=== PATIENT | female | born 1990 | race Caucasian/White ===

== ENCOUNTER 2022-04-26 14:54 | Outpatient (REF) | payer BC, SELFPAY ==
[2022-04-26 15:57] LABS: HCT 40.5 % (36.0-46.0); HGB 13.2 g/dL (11.2-15.7); MCH 29.6 pg (27.0-33.0); MCHC 32.6 % (32.0-36.0); MCV 91 fL (80-95); MPV 11.4 fL (8.0-11.0); Platelet Count 260 10^3/uL (130-400); RBC 4.46 10^6/uL (3.93-5.22); RDW 13.4 % (11.7-14.6); RDW-SD 45.1 fL; WBC 8.32 10^3/uL (4.4-10.8)
[2022-04-26 16:27] LABS: Hemoglobin A1C 5.8 % (<5.7)
[2022-04-26 16:42] LABS: Calculated LDL 152 mg/dL (<100); Cholesterol 244 mg/dL (<200); Ferritin 93 ng/mL (8-252); HDL Cholesterol 50 mg/dL (40-60); TSH (W/Ref FT4) 34.17 uIU/mL (0.36-3.74); Triglyceride 214 mg/dL (<150)
[2022-04-26 17:03] LABS: FREE T4 0.45 ng/dL (0.76-1.46)
== END 2022-04-26 14:55 | disposition home or self-care (01) ==
LOC: NCHCN 14:54
PROVIDERS: Visit Provider Nurse Practitioner Family
DX: I10 Essential (primary) hypertension (principal); R00.2 Palpitations; Z86.2 Personal history of diseases of the blood and blood-forming organs and certain disorders involving the immune mechanism
CPT/HCPCS: 80061; 85027; 82728; 83036; 84439; 84443

== ENCOUNTER 2022-06-14 11:36 | Outpatient (REF) | payer OTHER, SELFPAY ==
[2022-06-14 16:09] LABS: TSH (W/Ref FT4) 2.08 uIU/mL (0.36-3.74)
== END 2022-06-14 11:37 | disposition home or self-care (01) ==
LOC: NCHCN 11:36
PROVIDERS: Visit Provider Nurse Practitioner Family
DX: O90.5 Postpartum thyroiditis (principal)
CPT/HCPCS: 84443

== ENCOUNTER 2022-12-12 12:42 | Outpatient (REF) | payer OTHER, SELFPAY ==
[2022-12-12 16:48] LABS: Abs Immature Grans 0.03 10^3/uL (0.0-0.06); Absolute Basophil Count 0.02 10^3/uL (0.0-0.2); Absolute Lymphocyte Count 2.63 10^3/uL (1.2-3.4); Absolute Monocyte Count 0.42 10^3/uL (0.1-0.8); Basophils % 0.3; HCT 39.6 % (36.0-46.0); HGB 13.1 g/dL (11.2-15.7); Immature Grans % 0.4; Lymphocytes % 34.6; MCH 30.1 pg (27.0-33.0); MCHC 33.1 % (32.0-36.0); MCV 91 fL (80-95); MPV 12.2 fL (8.0-11.0); Monocytes % 5.5; Neutrophils % 59.2; Platelet Count 224 10^3/uL (130-400); RBC 4.35 10^6/uL (3.93-5.22); RDW 12.4 % (11.7-14.6); RDW-SD 40.7 fL
[2022-12-12 17:56] LABS: Hemoglobin A1C 5.5 % (<5.7)
[2022-12-12 18:09] LABS: ALT 50 U/L (14-59); AST 28 U/L (15-37); Alkaline Phosphatase 77 U/L (46-116); Anion Gap 12.6 mmol/L (3-11); BUN 14 mg/dL (7-18); Bilirubin, Total 0.3 mg/dL (0.2-1.0); CO2 25.4 mmol/L (21.0-32.0); CREATININE 0.7 mg/dL (0.55-1.02); Calcium 10.2 mg/dL (8.5-10.1); Chloride 103 mmol/L (98-107); Estimated GFR 117.04 (mL/min/1.73m2); Glucose 103 mg/dL (74-106); Potassium 3.9 mmol/L (3.5-5.1); Sodium 141 mmol/L (136-145); TSH 1.32 uIU/mL (0.36-3.74); Total Protein 7.8 g/dL (6.4-8.2)
[2022-12-12 18:13] LABS: Vitamin D 25 Total 25.3 ng/mL (30-100)
== END 2022-12-12 12:43 | disposition home or self-care (01) ==
LOC: NCHCN 12:42
PROVIDERS: Visit Provider Nurse Practitioner Family
DX: Z86.2 Personal history of diseases of the blood and blood-forming organs and certain disorders involving the immune mechanism (principal); I10 Essential (primary) hypertension; R73.03 Prediabetes
CPT/HCPCS: 80053; 82306; 83036; 84443; 85025

== ENCOUNTER 2022-12-14 16:17 | Emergency (ER) | payer OTHER, SELFPAY ==
[2022-12-14 16:18] VITALS: BP 161/108; PULSE 95; RESP 18; TEMP 36.9; O2SAT 100
--- NOTE | 2022-12-14 16:30 | DI.CT_ITS ---
Exam(s) CT HEAD WO EXAM: CT HEAD WO CLINICAL HISTORY: headache visual changes. TECHNIQUE: Imaging Protocol: Axial computed tomography images with coronal and sagittal reformatted images were created and reviewed COMPARISON: No exams were available for comparison FINDINGS: Ventricles and Extra axial spaces: Normal in size and morphology for the patient's age. Hemorrhage: None. Cerebral parenchyma: No evidence of acute infarct or mass. Midline shift: None. Brainstem/Cerebellum: Normal. Calvarium: Normal. Visualized Paranasal sinuses/Mastoids: Clear. Soft Tissues: Unremarkable. IMPRESSION: No acute intracranial process. RADIATION DOSE DELIVERED: 805.52mGy.cm Total DLP DATA REPOSITORY: All CT scans at this facility are submitted to the National Radiology Data Registry (NRDR) Dose Index Registry (DIR) with the [employer] (ACR). RADIATION OPTIMIZATION: All CT scans at this facility use at least one of these dose optimization te chniques: automated exposure control; mA and/or kV adjustment per patient size (includes targeted exa ms where dose is matched to clinical indication); or iterative reconstruction.
--- NOTE | 2022-12-14 16:40 | ED.GENADUL_ITS ---
Discharge Plan Disposition Patient Disposition: Home Discharge Details Chief Complaint: Headache Clinical Impression: Migraine aura occurring with and without headache Primary Care Provider: None,None ED Provider: Jessica Palafox Discharge Instructions Instructions: General Headache (ED), Ocular Migraine (ED), Migraine Headache (ED), Acute Headache (ED) Additional Instructions: Return here for any new or worrisome symptoms. Make a follow-up appointment with your primary care provider and with neurology. Referrals: Corinne Gu MD [ [facility] STAFF PHYSICIAN] - (Patient seen in the emergency department for likely ocular migraine. Head CT is negative.) Discharge Data Discharge Physician: Jessica Palafox Medical Decision Making This is a 32-year-old female who presents with a headache and visual symptoms which have resolved. She has continued numbness in the first and third divisions of the 5th cranial nerves. My plan is to obtain a noncontrast head CT. She has a normal neurologic exam and in all likelihood this is a migraine. She does have a history of migraines but has never had an ocular migraine in the past. Her neurologic exam is reassuring. I do not see any indication for blood work. Differential Diagnosis Differential Diagnosis: Migraine, intracranial hemorrhage, sinusitis, retinal detachment, Medical Records Medical records reviewed: Yes I reviewed the patient's medical records. Imaging Data Radiologic Study: Imaging: CT Scan Radiologist's impression: No acute disease HPI General Date/Time Provider Initiated Documentation: 12/14/22 16:23 . HPI Narrative: Time seen was 1625 in bed 1. The patient is a 32-year-old jppae-eadq-qnowmqhg female who presents with a headache which has resolved associated with visual changes and numbness of the right face and right upper extremity. The patient does have a history of migraines but is never experienced any headache like this 1. She said that 1430 she was picking up grain from a store and had an acute onset of a left-sided frontal headache which lasted for approximately 10 minutes. She had associated loss of hearing which has since resolved and which also lasted a few minutes. She also describes floaters that look like a string that was moving she thought initially it was just in the right eye and then went to the left eye. The visual changes have resolved. The patient is currently pain-free. Her only complaints are of numbness and tingling of the right side of her face and right arm. General Stated Complaint: Headache WENDI: 3 Review of Systems All systems reviewed & are unremarkable except as noted in HPI and below Constitutional Constitutional: Denies fever(s) PFSH All Active Problems (Updated 12/14/22 @ 18:38 by Jessica Palafox MD) Migraine aura occurring with and without headache (Acute) Social History Smoking/Tobacco Use Status: Never Smoking risk assessment performed?: Yes Alcohol Intake: never Do you feel safe at home: Yes Do you feel safe in your relationship?: Yes History History 4 Para Hx # Term Pregnancies 2 Multiple births Hx # Pregnancies 1 Ectopic pregnancies AB induced Hx Number of Living Children 3 AB spontaneous 1 Exam Const General: cooperative, healthy appearing, comfortable, no acute distress, well developed, well groomed and well hydrated Nutritional Appearance: average body habitus and well nourished Orientation: alert, awake and oriented x3 Other: The patient is alert and oriented x4 HENMT Head: normal to inspection, normocephalic, atraumatic, no palpable skull fracture, no raccoon eyes and no temporal artery tenderness Ears: hearing grossly normal bilaterally and external ears normal General nose exam: external nose normal and no nasal discharge Face and sinus: sinuses nontender, face symmetric, no ecchymosis, no erythema and other (The patient has decreased sensation in the first and third divisions CN V) Mouth: oral mucosae normal, lip normal, tongue normal, oropharynx normal, moist mucous membranes and other (Normal phonation) Throat: posterior oropharynx normal Eyes General: appearance normal, both eyes and all related structures Periorbital: periorbital findings normal Eyelids: eyelids normal Conjunctivae: conjunctivae normal Sclera: sclerae normal Pupils: PERRL EOM: EOM intact bilaterally Other: The patient's pupils are equal round react light and accommodation. I was unable to visualize the optic disks. Neck Neck: normal visual inspection, full ROM, no lymphadenopathy, no meningeal signs, trachea midline and supple Carotids: normal carotid upstroke and no bruits Lymphatic: no lymphadenopathy noted Chest Chest: normal inspection of the chest Resp Effort & Inspection: normal respiratory effort and able to speak in complete sentences Auscultation: clear to auscultation bilaterally and normal I/E ratio Cardio Jugular venous pressure: no JVD Palpation: normal PMI Rate: regular rate Rhythm: regular rhythm Heart Sounds: S1 normal and S2 normal Bruits: no abdominal aortic bruits GI Inspection: normal to inspection and non-distended Palpation: soft, no hepatosplenomegaly and nontender Back/Spine/Pelvis Cervical Spine: normal cervical lordosis Other: No midline tenderness step-off or point tenderness Skin General skin exam: no rashes or lesions noted, turgor normal, no petechiae and no purpura Rashes: no rashes Trauma: no lacerations or abrasions Other: Skin is normal for ethnicity Neuro General: patient alert, patient awake, patient oriented x3, gait normal, moves all extremities, no meningeal signs and no focal motor deficits Cognition: normal cognition Speech: speech normal Gait: normal gait Motor: muscle tone normal throughout, strength 5/5 throughout and no pronator drift Sensory Exam: other (The patient has decreased sensation of CN V on R of the forehead and chin. ) DTR's: Rt Biceps: 2+, Lt Biceps: 2+, Rt Brachioradialis: 1+, Lt Brachioradialis: 1+, Rt Patellar: 2+, Lt Patellar: 2+, Rt Ankle: 1+ and Lt Ankle: 1+ Plantar Reflexes: Downgoing: bilateral Coordination: dtgwoe-lh-dhyn test normal and Romberg test normal Pupils: Normal pupillary reactivity/response: bilateral Other: The patient has decreased sensation in a glove like distribution of the right arm. Motor function is 5 out of 5 in all muscle groups of all extremities Extrem General: normal to inspection, full ROM, capillary refill normal and normal exam except as noted Right lower extremity: normal to inspection Left lower extremity: normal to inspection Psych Appearance: grossly normal Affect: normal affect Attitude: cooperative Insight: insight good Judgment: judgment good Other: The patient appears to have capacity make medical decisions. Course Reevaluation(s) Time: 18:37 Reevaluation: The patient feels improved. She is no longer having any numbness or tingling. She feels back to baseline. She denies any change in caffeine intake. She has been under stress and not getting very much sleep because she has young children at home. She feels well enough to be discharged and we will have her follow-up with neurology Vital Signs Vital signs: Vital Signs Temperature 36.9 C 12/14/22 16:18 Pulse 95 H 12/14/22 16:18 Respiratory Rate 18 12/14/22 16:18 Blood Pressure 161/108 H 12/14/22 16:18 Pulse Oximetry 100 12/14/22 16:18 Temperature 36.9 C 12/14/22 16:18 Temperature Source Oral 12/14/22 16:18 Pulse 95 H 12/14/22 16:18 Respiratory Rate 18 12/14/22 16:18 Blood Pressure 161/108 H 12/14/22 16:18 Blood Pressure Position Sitting 12/14/22 16:18 Pulse Oximetry 100 12/14/22 16:18 Oxygen Delivery Method Room Air 12/14/22 16:18 Oxygen Flow Rate 0 12/14/22 16:18
--- NOTE | 2022-12-14 17:50 | DI.VRAD_ITS ---
PROCEDURE INFORMATION: Exam: CT Head Without Contrast Exam date and time: 12/14/2022 5:17 PM Age: 32 years old Clinical indication: Other: Headache visual changes TECHNIQUE: Imaging protocol: Computed tomography of the head without contrast. COMPARISON: No relevant prior studies available. FINDINGS: Brain: No evidence of acute infarct. No intraparenchymal hemorrhage. No midline shift or mass effect. No extra-axial fluid collections or hemorrhage. Cerebral ventricles: No ventriculomegaly. Paranasal sinuses: Visualized sinuses are unremarkable. No fluid levels. Mastoid air cells: Visualized mastoid air cells are well aerated. Bones/joints: Unremarkable. No acute fracture. Soft tissues: Unremarkable. IMPRESSION: No acute intracranial abnormality. Dictated and Authenticated by: Richie Mendoza MD. Ordering:DYLLAN Lopez MD
[2022-12-14 17:53] VITALS: BP 119/78; PULSE 86; RESP 16; O2SAT 98
== END 2022-12-14 18:52 | disposition home or self-care (01) ==
PROVIDERS: Emergency Provider Emergency Medicine Emergency Medical Services; PCP Nurse Practitioner Family
DX: G43.109 Migraine with aura, not intractable, without status migrainosus (principal)
CPT/HCPCS: 36416; 82962; 99284; 70450; 99283

== ENCOUNTER 2023-03-24 15:16 | Outpatient (REF) | payer OTHER, SELFPAY ==
[2023-03-24 17:48] LABS: TSH 2.14 uIU/mL (0.36-3.74)
== END 2023-03-24 15:17 | disposition home or self-care (01) ==
LOC: NCHCN 15:16
PROVIDERS: PCP Nurse Practitioner Family; Visit Provider Nurse Practitioner Family
DX: O90.5 Postpartum thyroiditis (principal)
CPT/HCPCS: 84443

== ENCOUNTER 2023-07-25 15:27 | Outpatient (REF) | payer SELFPAY ==
[2023-07-25 19:22] LABS: Abs Immature Grans 0.03 10^3/uL (0.0-0.06); Absolute Basophil Count 0.04 10^3/uL (0.0-0.2); Absolute Eosinophil Count 0.01 10^3/uL (0.0-0.7); Absolute Lymphocyte Count 3.36 10^3/uL (1.2-3.4); Absolute Neutrophil Count 5.33 10^3/uL (1.2-6.7); Basophils % 0.4; Eosinophils % 0.1; HCT 39.3 % (36.0-46.0); HGB 12.8 g/dL (11.2-15.7); Immature Grans % 0.3; Lymphocytes % 35.1; MCHC 32.6 % (32.0-36.0); MCV 92 fL (80-95); MPV 11.1 fL (8.0-11.0); Monocytes % 8.4; Neutrophils % 55.7; Platelet Count 278 10^3/uL (130-400); RBC 4.26 10^6/uL (3.93-5.22); RDW 11.9 % (11.7-14.6); RDW-SD 39.9 fL; WBC 9.57 10^3/uL (4.4-10.8)
[2023-07-25 20:00] LABS: Vitamin D 25 Total 26.3 ng/mL (30-100)
[2023-07-25 20:33] LABS: Hemoglobin A1C 5.7 % (<5.7)
== END 2023-07-25 15:28 | disposition home or self-care (01) ==
LOC: NCHCN 15:27
PROVIDERS: PCP Nurse Practitioner Family; Referring Provider Nurse Practitioner Family; Visit Provider Nurse Practitioner Family
DX: R53.83 Other fatigue (principal); R73.03 Prediabetes; E55.9 Vitamin D deficiency, unspecified
CPT/HCPCS: 82306; 83036; 85025

== ENCOUNTER 2023-10-02 10:07 | Outpatient (REF) | payer OTHER, SELFPAY ==
[2023-10-02 21:50] LABS: TSH 2.27 uIU/Ml (0.36-3.74)
== END 2023-10-02 10:08 | disposition home or self-care (01) ==
LOC: NCHCN 10:07
PROVIDERS: PCP Nurse Practitioner Family; Visit Provider Nurse Practitioner Family
DX: O90.5 Postpartum thyroiditis (principal)
CPT/HCPCS: 84443

== ENCOUNTER 2024-01-26 15:06 | Outpatient (REF) | payer OTHER, SELFPAY ==
[2024-01-26 21:05] LABS: Hemoglobin A1C 5.7 % (<5.7)
[2024-01-26 21:26] LABS: Anion Gap 11.9 mmol/L (3-11); BUN 14 mg/dL (7-18); CO2 24.1 mmol/L (21.0-32.0); CREATININE 0.8 mg/dL (0.55-1.02); Calcium 10.2 mg/dL (8.5-10.1); Calculated LDL 111 mg/dL (<100); Chloride 102 mmol/L (98-107); Cholesterol 215 mg/dL (<200); Estimated GFR 99.09 (mL/min/1.73m2); Glucose 105 mg/dL (74-106); HDL Cholesterol 53 mg/dL (40-60); Potassium 4.5 mmol/L (3.5-5.1); Sodium 138 mmol/L (136-145); TSH 4.15 uIU/Ml (0.36-3.74); Triglyceride 256 mg/dL (<150)
== END 2024-01-26 15:07 | disposition home or self-care (01) ==
LOC: NCHCN 15:06
PROVIDERS: PCP Nurse Practitioner Family; Visit Provider Nurse Practitioner Family
DX: I10 Essential (primary) hypertension (principal); O90.5 Postpartum thyroiditis; E55.9 Vitamin D deficiency, unspecified; R73.03 Prediabetes
CPT/HCPCS: 80048; 80061; 82306; 83036; 84443

== ENCOUNTER 2024-04-22 12:55 | Outpatient (REF) | payer OTHER, SELFPAY ==
--- OUTSIDE RECORDS SUMMARY | 2024-04-22 12:56 | XMS_ITS | Continuity of Care Document ---
Author Organization [facility] Address [address] [place] [address] Care Team Providers Care Air Sampler Name Role Phone Amna Vicente Primary Care Physician [phone] [facility]counter [facility] Date(s): 03/02/24 - 03/02/[address] [address] Encounter Diagnosis Other intraarticular fracture of lower end of right radius, initial encounter for closed fracture(Final) - Other fall on same level, initial encounter(Final) - Activity, roller skating (inline) and skateboarding(Final) - Other specified places as the place of occurrence of the external cause(Final) - Discharge Disposition: Higher Level of Care Attending Physician: Clement Collado MD Admitting Physician: Clement Collado MD Referring Physician: Clement Collado MD Allergies, Adverse Reactions, Alerts Substance Criticality Severity Reaction Reaction Severity Status Latex Unable to assess criticality Unknown Active Assessment and Plan Future Appointments Functional Status 03/02/24 Family Member Travel History No recent t ravel Recent Travel History No recent travel Other exposure to Infectious Disease Non e Medications amLODIPine 5 mg oral tablet 5 mg = 1 tab, Oral, Daily, 0 Refill(s) Start Date: 03/02/24 Status: Ordered enalapril 0 Refill(s) Start Date: 02/19/24 Status: Ordered HYDROcodone-acetaminophen 5 mg-325 mg oral tablet 1 tab, Oral, every 6 hr, PRN as needed for pain, # 12 tab, 0 Refill(s), Pharmacy: [id number], cm, 03/02/24 9:59:00 EDT, Height, 127, kg, 03/02/24 10:12:00 EDT, Weight Dosing Start Date: 03/02/24 Status: Ordered ibuprofen 800 mg oral tablet 0 Refill(s) Start Date: 02/19/24 Status: Ordered Problem List Condition Confirmation Course Effective Dates Status Health St atus Informant Essential hypertension Confirmed Active Fatigue Confirmed Active Migraine with aura Confirmed Active Obesity Confirmed Active Palpitations Confirmed Active Prediabetes Confirmed Active Vitamin D deficiency Confirmed Active Procedures Procedure Date Related Diagnosis Body Site Status ORIF - Open reduction and in ternal fixation of fracture 1 03/01/24 Completed section Complete d Extraction of wisdom tooth Completed Ligation of fallopian tube Completed 1ORIF- Distal radius fx. Vital Signs Most recent to oldest [Reference Range]: 1 2 3 Temperature Oral [35.8-37.3 Deg C] 37.1 Deg C (03/02/24 9:59 AM) Temperature Temporal Artery [36-38 Deg C] 36.3 Deg C (03/02/24 2:25 PM) 36.2 Deg C (03/02/24 1:35 PM) 35.9 Deg C *LOW* (03/02/24 1:20 PM) Temperature Temporal Artery (DegF) [97.3-100 Deg F] 97.34 Deg F (03/02/24 2:25 PM) 97.16 Deg F *LOW* (03/02/24 1:35 PM) 96.62 Deg F *LOW* (03/02/24 1:20 PM) Peripheral Pulse Rate [60-100 bpm] 94 bpm (03/02/24 2:25 PM) 89 bpm (03/02/24 2:15 PM) 92 bpm (03/02/24 2:00 PM) Heart Rate Monitored [60-100 bpm] 95 bpm (03/02/24 2:24 PM) 89 bpm (03/02/24 2:15 PM) 92 bpm (03/02/24 2:00 PM) Respiratory Rate [12-24 br/min] 18 br/min (03/02/24 2:24 PM) 17 br/min (03/02/24 2:15 PM) 14 br/min (03/02/24 2:00 PM) Blood Pressure [90-140/60-90 mmHg] 131/93mmHg (03/02/24 2:24 PM) 156/103mmHg *HI* (03/02/24 2:15 PM) 134/85mmHg (03/02/24 2:00 PM) Mean Arterial Pressure, Cuff [65-140 mmHg] 121 mmHg (03/02/24 2:15 PM) 101 mmHg (03/02/24 2:00 PM) 82 mmHg (03/02/24 1:35 PM) Weight 127 kg (03/02/24 9:59 AM) Weight Dosing 127.000 kg (03/02/24 9:59 AM) Height 175 cm (03/02/24 9:59 AM) Body Mass Index 41.47 kg/m2 (03/02/24 9:59 AM) Social History Social History Type Response Tobacco Never tobacco user T obacco Use:. Sex Sex Representation Female (finding) Discharge instructions * Malinda Billings: PERFORM Event Display: Discharge Instructions Authored Date: [id number] SHABBIR SINCERE :1990 Age:33 years Sex:Female Visit Date:03/02/2024 Primary Care Physician: Am[facility] Vicente [facility] Discharge Instructions We would like to thank you for allowing us to assist you with your healthcare needs. The following includes patient education materials and information regarding your injury/illness. Your Next Steps Instructions From Your Care Team Orthopedic Surgery Discharge Instructions keep splint clean and dry until follow up in ortho office do not take dressing??down ok to use a sling as needed? Pain Control ?Take your pain relief medication when discomfort first begins. ?Can use stool softener while taking the narcotic to avoid problems with constipation. ?It is okay to start snzg-ycz-wqloras Naproxen or Ibuprofen??immediately ?? Call your doctor if you: ?Develop a fever over 101 degrees. ?Have increased redness, warmth, discharge, swelling, or hardness around the operative site. ?Circulation changes such as tingling, numbness or your fingers/toes appear blue or white. ?Your pain is not adequately controlled, despite taking your pain medication routinely. ?? On the day of surgery, or while taking narcotic pain medication: No driving, operating power equipment,?? drinking alcohol,?? or taking mood altering drugs? Apply warm, moist compress to IV site if sore or red, for 20 minutes, 4 times a day, for 2-3 days.?? Call your doctor if IV site soreness or redness persists. In the event of any problems after surgery, contact your doctor or the Emergency Room @ . Ortho Office: [phone]?? Discharge Orders Discharge Patient Instructions, Follow discharge instructions handout Scheduled Future Appointments 2023 1:15 PM EDT ?? 2023 1:45 PM EDT ?? Medications What How Much When Instructions Next Dose New HYDROcodone-acetaminophen (HYDROcodone-acetaminophen 5 mg-325 mg oral tablet) 1 tab Oral (given by mouth) Every 6 hours as needed for as needed for pain Pickup at [facility] Pharmacy Information [id number]: [address] [place] [id number] [phone] Your Summary Your Care Team Admitting Physician - Andreas BENSON, Clement Mason MD Attending Physician - Andreas BENSON, Clement Mason MD Primary Care Physician - Amna Vicente Referring Physician - Andreas BENSON, Clement Mason MD Patient/Chicken Handler Signature Patient Name:SINCERE SHEA I have received this information and my questions have been answered. Patient/Chicken Handler Name: Patient/Chicken Handler Signature: Relationship to Patient: Witness Name/Signature: Date: Electronically Signed on: 03/02/2024 13:30 EDTSigned by:SEBASTIEN History and physical note * Bety Dueñas: PERFORM Event Display: History and Physical Authored Date: [id number] SINCERE SHEA :1990 Age:33 years Sex:Female Primary Care Physician: Amna Vicente Visit Date:??02/19/2024 [1] ? Chief Complaint R DR fx and R knee injury, DOI 02/15/24 ?? History of Present Illness 33-year-old??right handed female seen in consultation a for right distal radius fracture. ??Patientstates on 02/15/2024 she was rollerskating with her child??and she landed on an outstretched wrist. ??Of note she also did twist her right knee. ?? Physical Exam ?Vitals & Measurements ?HT:??172.72??cm?? WT:??129.27??kg?? BMI:??43.33?? BSA:??2.49?? Right wrist shows minimal swelling. ??Sensation intact. ??She has no swelling into her digits and she is able to make a composite fist. ?? Assessment/Plan 1.??Distal radius fracture, right??S52.501A ?33-year-old xuuma-gmuv-vbjshtgd female with a right distal radius fracture. ??Reviewed x-rayswith Dr. Johns at this point recommendation being for a CT scan to make surgical decision making.??She did go into a short arm cast today.?? We will contact her next week regarding the CT scan??and her follow-up. Problem List/Past Medical History Ongoing ?Morbid obesity Historical ?No qualifying data Medications ??enalapril ??ibuprofen 800 mg oral tablet ??ketorolac 10 mg oral tablet Allergies Latex Social History Electronic Cigarette/Vaping ??Electronic Cigarette Use: Never. Employment/School ??Employed Home/Environment ??Lives with Spouse. Other Tobacco ??Never tobacco user Tobacco Use:. Diagnostic Results ?Diagnostic Study Interpretation: ?X-rays: X-rays obtained do show an intra-articular distal radius fracture. ??Unclear of??exactly where the fracture components are ?? [2] Addendum by Irene Ortez PA-C on February 26, 2024 12:55:00 EDT (Verified) I was able to review the CT scan with myself and Dr. Johns showing an intra- articular??distal radius fracture with a dorsal ulnar component. ??Recommendations being for operative fixation. ??I reviewed this with the patient and will anticipate undergoing a right distal radius ORIF 03/02/2024.?? All questions were answered and no guarantees were given. [3] [1]??Office Visit Note DR walker; Irene Ortez PA-C 02/19/2024 15:04 EDT [2]??Office Visit Note DR walker; Irene Ortez PA-C 02/19/2024 15:04 EDT [3]??Office Visit Note DR walker; Irene Ortez PA-C 02/19/2024 15:04 EDT Electronically Signed on 02/27/2024 14:54 EDT Bety Dueñas Electronically Signed on 03/01/2024 10:00 EDT Clement Collado MD * Andreas TIMClement MD: PERFORM Event Display: History and Physical Authored Date: [id number] Patient seen in preoperative hold no change in general still status H&P updated Electronically Signed on 03/02/2024 11:48 EDT Clement Collado MD Patient Care team information Care Team Personnel Name: Amna Vicente Position: No Access Member Role: Informed Provider Address: [address] [place] [address] Care Team Related Persons Name: PATRIA SHEA Insurance Providers Guarantor name: SAVANNA Health Plan Information #: 1 Payer: [facility] Member Number: [id number] Policy Number: NA Health Plan Information #: 2 Payer: [facility] Member Number: [id number] Policy Number: NA Health Plan Information #: 3 Payer: [facility] Member Number: NA Policy Number: NA
--- OUTSIDE RECORDS SUMMARY | 2024-04-22 12:56 | XMS_ITS | Continuity of Care Document ---
Author Organization [facility] Address [address] [place] [address] Care Team Providers Care Diabetes Nurse Name Role Phone Amna Vicente Primary Care Physician Encounter [facility] Date(s): 02/20/24 - 02/20/[address] [address] Discharge Disposition: Home Allergies, Adverse Reactions, Alerts Substance Criticality Severity Reaction Reaction Severity Status Latex Unable to assess criticality Unknown Active Assessment and Plan Future Scheduled Tests Radiology* CT Upper Extremity w/o Contrast Right 02/20/24 Medications enalapril 0 Refill(s) Start Date: 02/19/24 Status: Ordered ibuprofen 800 mg oral tablet 0 Refill(s) Start Date: 02/19/24 Status: Ordered ketorolac 10 mg oral tablet 0 Refill(s) Start Date: 02/19/24 Status: Ordered Social History Social History Type Response Tobacco Never tobacco user T obacco Use:. Sex Sex Representation Female (finding) Patient Care team information Care Team Personnel Name: Amna Vicente PUMP RUNNER-C Position: No Access Member Role: Primary Care Physician Address: [address], [place] [address] Insurance Providers Guarantor name: NI Health Plan Information #: 1 Payer: [facility] PPO Member Number: NA Policy Number: NA
--- OUTSIDE RECORDS SUMMARY | 2024-04-22 12:56 | XMS_ITS | Continuity of Care Document ---
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 Assistant Name Role Phone Amna Vicente Primary Care Physician [facility] Date(s): 02/25/24 - 03/17/[address] [address] Discharge Disposition: Home or Self Care Attending Physician: Irene Ortez PA-C Admitting Physician: Irene Ortez PA-C Referring Physician: Irene Ortez PA-C Allergies, Adverse Reactions, Alerts Substance Criticality Severity Reaction Reaction Severity Status Latex Unable to assess criticality Unknown Active Assessment and Plan Future Appointments Medications amLODIPine 5 mg oral tablet 5 mg = 1 tab, Oral, Daily, 0 Refill(s) Start Date: 03/02/24 Status: Ordered enalapril 0 Refill(s) Start Date: 02/19/24 Status: Ordered HYDROcodone-acetaminophen 5 mg-325 mg oral tablet 1 tab, Oral, TID, PRN as needed for pain, # 12 tab, 0 Refill(s), Pharmacy: [id number], 175, cm, 03/02/24 9:59:00 EDT, Height, 127, kg, 03/02/24 10:12:00 EDT, Weight Dosing Start Date: 03/09/24 Status: Ordered HYDROcodone-acetaminophen 5 mg-325 mg oral tablet 1 tab, Oral, every 6 hr, PRN as needed for pain, # 12 tab, 0 Refill(s), Pharmacy: [id number],175, cm, 03/02/24 9:59:00 EDT, Height, 127, kg, 03/02/24 10:12:00 EDT, Weight Dosing Start Date: 03/02/24 Status: Ordered ibuprofen 800 mg oral tablet 0 Refill(s) Start Date: 02/19/24 Status: Ordered oxyCODONE 5 mg oral tablet 5 mg = 1 tab, Oral, every 4 hr, PRN as needed for pain, # 18 tab, 0 Refill(s), Pharmacy: [id number], 175, cm, 03/02/24 9:59:00 EDT, Height, 127, kg, 03/02/24 10:12:00 EDT, Weight Dosing Start Date: 03/04/24 Status: Ordered Problem List Condition Confirmation Course [...] fallopian tube Completed 1ORIF- Distal radius fx. Social History Social History Type Response Tobacco Never tobacco user T obacco Use:. Sex Sex Representation Female (finding) Occupational therapy Progress note * Viky Arteaga OTR/L CHT: MODIFY, MODIFY, MODIFY, PERFORM, MODIFY Event Display: Occupational Therapy Progress Note Authored Date: [id number] *Visit Type: OT treatment and discharge Patient ID and date of checked:??Done *Referring??Diagnosis: Unspecified fracture of the lower end of unspecified radius, s/p right distal radius ORIF *Therapy Diagnosis: Right wrist pain (M25.531), right wrist stiffness (M25.631) *Subjective: Patient arrived wearing her orthosis. Her wrist is doing good ans she wears her orthosis without difficulty. Pt will have a therapy visit closer to home on 03/26/24. Her exercises are ok, with the biggest struggle being the wrist flex/ext. Patient Case History:??Pt was roller blading and fell on 02.15.24. Pt went to Urgent Care, had x-rays that were positive for DR fracture, referred to Dr Johns. Pt underwent Right Open Reduction Internal Fixation Radius with Dr Johns on 03.02.24 and the cast was removed 03.11.24. Precautions: Standard, no lifting Pain: Current pain level is none, can go up to 4/10 at the worst, which is when she moves it without thinking. *Objective Measures and Interventions: CPT 98804: Manual Therapy:?11? minutes Manual therapy to decrease tissue tension, decrease pain, decrease edema, promote healthy joint mobility and improve range of motion for functional ADL???s: Treatment techniques utilized today included: No edema observed today but pt reports she has observed random edema probably based on her activitylevel. Incision is healing but scabs are still present so scar management using vitamin E oil not initiated. IASTM to R forearm flexor and extensor muscles, with UE positioned in supination then pronation using concave surface of the instrument, applied at 45* angle, with mod pressure applied, for middle/deep fascia, lotion used as skin lubricant, with linear strokes, well tolerated with moderate tightness. Incision and bruised area avoided. CPT 91828: Therapeutic Exercise:?13? minutes Therapeutic exercise to promote improved joint stability, strength, endurance, and range of motion for functional ADL???s: Specific education/training provided for proper technique. ROM/Strength: R AROM L AROM R PROM L PROM R Strength L Strength Flexion ??25 ??75 Extension ??42/46 ??74 Ulnar Deviation ??26wfl ??28 Radial Deviation ??17 ??28 Supination ??65 ??70 Pronation ??wfl ??wfl Wrist AROM all movement (flexion/extension, pronation/supination, radial/ulnar deviation, wrist circumduction) 10X each Wrist flexion/extension AROM done on blue angled foam to isolate movement 5X *Patient??Education: Patient to focus on wrist flexion/extension AROM, use of heat for approximately 10 minutes prior/during wrist exercises, start scar massage using vitamin E oil when scabs will come off. Previously Provided Education: ?OT POC, wrist AROM, wear and care of orthosis. *Occupational Therapy Assessment:??Patient was seen for her initial evaluation on 03/11/2024 and wasseen today for 1 treatment session prior to starting therapy closer to home. Patient is progressingas evidenced by increased supination AROM, the rest of wrist AROM is stable. Patient had no difficulty wearing her orthosis. Patient was seen for a total of 2 sessions including today, which consisted of initial evaluation, fabrication of orthosis, therapeutic exercises and manual therapy. Patient will be discharged from OT here at [facility]. *Plan:??Discharge OT at this time, patient will continue with therapy closer to home. Patient will continue with her home program in the meantime. *Total Time: 24 minutes *Time In: 02:12 *Time Out: 02:36 Electronically Signed on 03/17/2024 15:02 EDT Viky Arteaga OTR/L CHT * Viky Arteaga OTR/L CHT: PERFORM, MODIFY, MODIFY, MODIFY, MODIFY, MODIFY, MODIFY Event Display: Occupational Therapy Progress Note Authored Date: [id number] *Visit Type: Initial Evaluation Patient ID and date of checked:??Done *Referring??Diagnosis: Unspecified fracture of the lower end of unspecified radius, s/p right distal radius ORIF *Therapy Diagnosis: Right wrist pain (M25.531), right wrist stiffness (M25.631) *Subjective: Patient arrived following her Ortho appointment. Her OR bandages were taken down. Patient Case History:??Pt was roller blading and fell on 02.15.24. Pt went to Urgent Care, had x-rays that were positive for DR fracture, referred to Dr Johns. Pt underwent Right Open Reduction Internal Fixation Radius with Dr Johns on 03.02.24 and the cast was removed 03.11.24. Pertinent Past Medical History: Essential hypertension Fatigue Migraine with aura Morbid obesity Obesity Palpitations Prediabetes Vitamin D deficiency Pertinent Past Surgical History: ORIF - Open reduction and internal fixation of fracture: 03/02/24 Ligation of fallopian tube section Extraction of wisdom tooth Pertinent Medications: Home Medications (6) Active amLODIPine 5 mg oral tablet 5 mg = 1 tab, Oral, Daily enalapril HYDROcodone-acetaminophen 5 mg-325 mg oral tablet 1 tab, PRN, Oral, TID HYDROcodone-acetaminophen 5 mg-325 mg oral tablet 1 tab, PRN, Oral, every 6 hr ibuprofen 800 mg oral tablet oxyCODONE 5 mg oral tablet 5 mg = 1 tab, PRN, Oral, every 4 hr Pertinent Allergies: Latex Clinically Complex Situations:??None Prior Therapy:??None Prior Diagnostic Results: x-rays Prior Treatment:??Surgery Precautions: ??Standard, no lifting *Barriers to Education:??None Special Communication Needs:??None Behavior:??Appropriate Occupational Profile: Current Occupation: ??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 Pt has 3 children and they have a farm. Home Equipment:??NA *Previous Level of Function: ??Pt had no problems using her R hand for all ADLs *Current Level of Function:??Pt reports difficulty with everything including cutting food, changingdiapers. Pain: Location: ??base of L thumb, dorsal wrist and hand Nature: ??Not great but ok Behavior: ??Pt is taking Hydrocodone, Tylenol and Ibuprofen; took them this morning and has not had to take more today Severity: ??Current pain is 5/10 with movements, at rest it is ok maybe 1-2/10, at the worst in the past few days it went up to 10/10 Other: ??Sleep: the pain was interfering with sleep, waking her up and being unable to fall asleep becauseof pain. Hand Dominance: Right Palpation:??NA Skin Inspection: ??Yellow bruises still present, skin rash over volar forearm, steri strips presentover her incision Wrist Edema (general): ??Mild generalized edema ROM/Strength: R AROM L AROM R PROM L PROM R Strength L Strength Flexion ??28 ??75 Extension ??46 ??74 Ulnar Deviation ??25 ??28 Radial Deviation ??21 ??28 Supination ??55 ??70 Pronation ??wfl ??wfl Wrist Sensation:Pt denies any sensory changes Orthosis:??To be fabricated today Hand AROM:??B hand AROM wfl Upper Quadrant Screen: R elbow AROM wfl *Patient Education: ??OT POC, wrist AROM as per written information provided, Pt instructed in purpose and wear/care of orthosis including to be worn at all times, off for exercises and hygiene, avoid heat, wash with dish soap/hand soap as needed, use of stockinette PRN, no cutting or padding of orthosis, adjust by using straps(s) and if any s/s of redness or adverse s/s, contact OT for adjustment. Written information provided. *Occupational Therapy Assessment: Patient is a 33-year-old woman referred to OT with a diagnosis ofunspecified fracture of the lower end of unspecified radius, s/p right distal radius ORIF with Dr. Johns on 03/02/24. Patient injured her thumb when falling backward while doing roller blade. Patient lives at home with her spouse and 3 young children and they have a farm. She is also working full- time as a financial aid officer. Patient presents today for fabrication of orthosis and initial evaluation. She is demonstrated right wrist pain, right wrist stiffness, along with functional difficulties at home. At the end of the evaluation, patient reported that she would like to attend therapy closer to home. Patient is a good candidate for skilled OT services and expect she will progress well.Patient will be seen here at [facility] next week, or until she has an appointment at another therapy clinic closer to home. *Rehab Potential: Good?to reach and maintain prior level of function *Functional Outcome Measure: FOM: Patient Rated Wrist/Hand Evaluation (PRWHE) ? Score: Current impairment level is 81%, with patient reporting inability to turn a doorknob, cut meat, push up from a chair, carry a 10 pound object, use bathroom tissue, and difficulty with fastening buttons, personal care activities, work, and recreational activities. *Short Term Goals:??Deferred to long-term goals *[facility] Goals: In 2 weeks: #1 patient will report decreased pain to 5/10 at the worst when using her hand for light ADLs #2 right wrist flexion AROM will increase by 20 degree to facilitate personal care #3 right wrist extension and supination will increase by 10 degree to facilitate changing diapers #4 patient will be independent and adhere to her home program as evidenced by demonstration of proper technique *Patient Goals: Being able to use her hand without pain *Frequency of Treatment: once a week *Intensity of Treatment (minutes):??30 minutes *Duration of Treatment (days/weeks): 2 weeks *Planned Treatment Interventions: ??x CPT 70584: Therapeutic Exercise ??wrist A/AA/PROM, home program, AROM while in fluidotherapy as appropriate CPT G0283: Electrical Stimulation ??x CPT 34379: Therapeutic Activity assess need for adaptive equipment and activity modification as needed CPT 49002: Biofeedback ??x CPT 53106: Manual Therapy ??scar and edema management as appropriate CPT 51214: Sensory Integration CPT 35562: Neuromuscular Re-education CPT 30806: Wheelchair Management Training CPT 16498: Massage CPT 96562: Physical Performance Test CPT 21743: Self-Care/Home Management CPT 85473: Initial Orthotic Fit/Train CPT 29756: Ultrasound CPT 95912: Initial Prosthetic Train CPT 61365: Iontophoresis CPT 92048: Subsequent Orthotic/Prosthetic Encounter CPT 13379: Paraffin Bath CPT 67885: Ergo/Assistive Device Training CPT 39919: Contrast Bath CPT 31812: Cognitive Function?initial 15 minutes CPT 23373: Electrical Stimulation CPT 17241: Cognitive Function - each add???l 15 minutes L codes/Orthosis: *Discharge Plan: Upon achieving goals or maximal benefit of therapy services. *Procedure Documentation: CPT 79963: Low Complexity OT Evaluation:?35? minutes Occupational Therapy Low Complexity Evaluation performed. History involves expanded reviewincluding OR report. Examination of performance deficit(s) includes 3-5 elements. Clinical decision making includes limited?? treatment option considerations. possibly present?comorbidities. Task modifications/assistance are not necessary. L3906: Wrist, hand immobilization orthosis - Custom??fabricated Custom fabrication of??wrist, hand immobilization??orthosis. - Wrist cock up thermoplastic made in perforated Ezeform with wrist neutral, with good fit when patient left. Patient was provided with additional stockinette to be worn for comfort. Thin memory foamwas added to the dorsal strap to avoid irritation of incision. *Plan: Adjust orthosis as needed, establish home program, and monitoring hand and forearm AROM, initiate scar and edema management as appropriate. *Total Time: 59 minutes *Time In:01:46 *Time Out:??02:45 Electronically Signed on 03/11/2024 15:50 EDT Viky Arteaga/Efrain CHT Reviewed by: Rossy Eugene Patient Care team information Care Team Personnel Name: Amna Vicente Position: No Access Member Role: Informed Provider Address: [address] [place] [address] Care Team Related Persons Name: PATRIA SHEA Insurance Providers Guarantor name: SAVANNA Health Plan Information #: 1 Payer: [facility] Member Number: [id number] Policy Number: NA Health Plan Information #: 2 Payer: [facility] Member Number: [id number] Policy Number: NA Health Plan Information #: 3 Payer: [facility] Member Number: NA Policy Number: NA
--- OUTSIDE RECORDS SUMMARY | 2024-04-22 12:57 | XMS_ITS | Continuity of Care Document ---
Author Organization [facility] Address [address] [place] [address] Support Name Relationship Address Phone PATRIA SHEA Personal Relationship Unknown Unav ailable Encounter [facility] [id number] Date(s): 02/16/24 - 02/16/24 [facility] [address] [place] [address]- [place] Discharge Disposition: Home Allergies, Adverse Reactions, Alerts Substance Criticality Severity Reaction Reaction Severity Status Latex High criticality Moderate Act sonja Medications enalapril 0 Refill(s) Start Date: 02/15/24 Status: Ordered ketorolac 10 mg oral tablet 10 mg = 1 tab, Oral, QID, PRN as needed for pain, not to exceed 40 mg/day and 5 days duration for all dose forms, # 20 tab, 0 Refill(s), Pharmacy: [facility], 175, cm, 02/15/24 16:33:00 EDT, Height, 127, kg, 02/15/24 16:37:00 EDT, Weight Dosing Start Date: 02/15/24 Status: Ordered Social History Social History Type Response Tobacco Never tobacco user T obacco Use:. Sex Sex Representation Female (finding) Patient Care team information Care Team Related Persons Name: PATRIA SHEA Insurance Providers Guarantor name: Health Plan Information #: 1 Payer: [facility] Member Number: NA Policy Number: NA
--- OUTSIDE RECORDS SUMMARY | 2024-04-22 12:57 | XMS_ITS | Continuity of Care Document ---
Author Organization [facility] Address [address] [place] [address] Care Team Providers Care Enamel Drier Name Role Phone Amna Vicente Primary Care Physician [phone] Encounter [facility] Date(s): 02/24/24 - 02/24/[address] [address] Encounter Diagnosis Distal radius fracture, right(Discharge Diagnosis) - 02/24/24 Discharge Disposition: Home or Self Care Attending Physician: Irene Ortez PA-C Admitting Physician: Irene Ortez PA-C Referring Physician: Irene Ortez PA-C Allergies, Adverse Reactions, Alerts Substance Criticality Severity Reaction Reaction Severity Status Latex Unable to assess criticality Unknown Active Assessment and Plan Future Appointments Medications enalapril 0 Refill(s) Start Date: 02/19/24 [...] Procedure Date Related Diagnosis Body Site Status section Complete d Extraction of wisdom tooth Completed Ligation of fallopian tube Completed Social History Social History Type Response Tobacco Never tobacco user T obacco Use:. Sex Sex Representation Female (finding) Patient Care team information Care Team Personnel Name: Amna Vicente Position: No Access Member Role: Primary Care Physician Address: [address] [place] [address]- [place] Insurance Providers Guarantor name: Health Plan Information #: 1 Payer: [facility] Member Number: [id number] Policy Number: NA Health Plan Information #: 2 Payer: [facility] Member Number: [id number] Policy Number: JESSIE Health Plan Information #: 3 Payer: [facility] Member Number: NA Policy Number: NA
--- OUTSIDE RECORDS SUMMARY | 2024-04-22 12:57 | XMS_ITS | Continuity of Care Document ---
Author Organization [facility] Ambulatory Clinics Address [address] [place] [address] Support Name Relationship Address Phone PATRIA SHEA Personal Relationship Unknown Unav ailable Encounter [facility] NBR [id number] Date(s): 02/15/24 - 02/15/24 [facility] Ambulatory Clinics [address] [place] [address]- [place] Encounter Diagnosis Right knee injury(Discharge Diagnosis) - 02/15/24 Distal radius fracture, right(Discharge Diagnosis) - 02/15/24 Discharge Disposition: Home or Self Care Attending Physician: Chiquita Daugherty PA-C Allergies, Adverse Reactions, Alerts Substance Criticality Severity Reaction Reaction Severity Status Latex High criticality Moderate Act sonja Assessment and Plan Extracted from: Title:[facility] Urgent Care Office Visit Note Author:Angelo Daugherty PA-C Date:02/15/24 1.??Distal radius fracture, right??S52.501A ??X-ray confirms a right distal radius fracture. ??Placed and was placed in a thumb spica splint today. ??We reviewed splint precautions.?She was provided a sling but I did encourage she remove the sling several times a day to perform gentle range of motion exercises??to prevent stiffening of the elbow.?? I encouraged elevation, ice, zjgo-kzi-emypady analgesics as needed. ??She was given 800 mg of ibuprofen in clinic today. ??Tomorrow, she can start the Toradol. ??Advise she not take the Toradol with any other NSAIDs. ??She can take Tylenol if needed for breakthrough pain.?? I placed an urgent referral to??orthopedics for recheck and ongoing care management. ??She should recheck??for any acute concerns in the meantime. Ordered: ibuprofen, 800 mg, Oral, Tab, Once, First Dose: 02/15/24 18:37:00 EDT, Stop Date: 02/15/24 18:37:00 EDT, Physician Stop, Routine ketorolac 10 mg oral tablet, 10 mg = 1 tab, Oral, QID, PRN as needed for pain, not to exceed 40 mg/day and 5 days duration for all dose forms, # 20 tab, 0 Refill(s), Pharmacy: [facility], 175, cm, 02/15/24 16:33:00 EDT, Height, 127, kg, 02/15/24 16:37:00 EDT, Weight Dosing Office serv/reg kirti/wkend/holiday [id number], 02/15/24 16:28:00 EDT, Distal radius fracture, right Right knee injury ?? 2.??Right knee injury??S89.91XA ??X-ray negative for fracture or bony abnormality.?? Patient does report hearing and feeling an audible??loud pop which I explained to patient could be concerning for internal derangement. ??However, her range of motion is??reassuring on exam and I am unable to appreciate any major effusion at this time. ??The injury did however just happen??prior to arrival.?? She will be following up with orthopedics for her right??wrist fracture, so I advised that she??follow-up??with regards to her knee as well. ??She was placed in a knee brace today. ??She is unable to utilize crutches due to her??wrist fracture. ??I advised limited weightbearing??as tolerated.?? Encouraged elevation, ice, bshw-xhf-zvzbonn analgesics as needed.?? She will follow-up with orthopedics. Ordered: ibuprofen, 800 mg, Oral, Tab, Once, First Dose: 02/15/24 18:37:00 EDT, Stop Date: 02/15/24 18:37:00 EDT, Physician Stop, Routine ketorolac 10 mg oral tablet, 10 mg = 1 tab, Oral, QID, PRN as needed for pain, not to exceed 40 mg/day and 5 days duration for all dose forms, # 20 tab, 0 Refill(s), Pharmacy: [facility], 175, cm, 02/15/24 16:33:00 EDT, Height, 127, kg, 02/15/24 16:37:00 EDT, Weight Dosing Office serv/reg kirti/wkend/holiday [id number], 02/15/24 16:28:00 EDT, Distal radius fracture, right Right knee injury XR Knee 3 Views Right, 02/15/24 17:06:00 EDT, Routine, Reason: right knee injury, Transport Mode: Ambulatory, Right wrist injury Right knee injury, ABN Status: Not Required XR Wrist Complete 3+ Views Right, 02/15/24 17:06:00 EDT, Routine, Reason: right wrist injury, Transport Mode: Ambulatory, Right wrist injury Right knee injury, ABN Status: Not Required ?? Medications enalapril 0 Refill(s) Start Date: 02/15/24 Status: Ordered ketorolac 10 mg oral tablet 10 mg = 1 tab, Oral, QID, PRN as needed for pain, not to exceed 40 mg/day and 5 days duration for all dose forms, # 20 tab, 0 Refill(s), Pharmacy: [id number], 175, cm, 02/15/24 16:33:00 EDT, Height, 127, kg, 02/15/24 16:37:00 EDT, Weight Dosing Start Date: 02/15/24 Status: Ordered Vital Signs Most recent to oldest [Reference Range]: 1 Temperature Tympanic [36.6-38.1 Deg C] 3 6.3 Deg C *LOW* (02/15/24 4:33 PM) Peripheral Pulse Rate [60-100 bpm] 90 bp m (02/15/24 4:33 PM) Respiratory Rate [12-24 br/min] 16 br/mi n (02/15/24 4:33 PM) Blood Pressure [90-140/60-90 mmHg] 144/9 4mmHg *HI* (02/15/24 4:33 PM) Mean Arterial Pressure, Cuff [65-140 mmH g] 111 mmHg (02/15/24 4:33 PM) Weight 127 kg (02/15/24 4:33 PM) Weight Measured (lbs) 279.987 lb (02/15/24 4:33 PM) Weight Dosing 127.000 kg (02/15/24 4:33 PM) Height 175 cm (02/15/24 4:33 PM) Height/Length Measured (inches) 68.9 inc h (02/15/24 4:33 PM) BSA Measured 2.48 m2 (02/15/24 4:33 PM) Body Mass Index 41.47 kg/m2 (02/15/24 4:33 PM) Social History Social History Type Response Tobacco Never tobacco user T obacco Use:. Sex Sex Representation Female (finding) Hospital Discharge Instructions Patient Education 02/15/2024 16:56:40 Radial Fracture Radial Fracture A radial fracture is a break in the radius bone. The radius is a bone in the forearm, on the same side as the thumb. The forearm is the part of the arm that is between the elbow and the wrist. A radial fracture near the wrist (distal radialfracture) is the most common type of broken arm. A fracturecan also occur near the elbow (radial head fracture). What are the causes? The most common cause of a radial fracture is falling with the arm outstretched. Other causes include: ??? An accident, such as a car or bike accident. ??? A hard, direct hit to the forearm. What increases the risk? You may be at greater risk for a radial fracture if you: ??? Are female. ??? Are an older adult. ??? Play contact sports. ??? Have a condition that causes your bones to become thin and brittle (osteoporosis). What are the signs or symptoms? A radial fracture causes pain immediately after the injury. Other signs and symptoms may include: ??? An abnormal bend or bump in the arm (deformity). ??? Swelling. ??? Tenderness. ??? Bruising. ??? Numbness or tingling in your arm and hand. ??? Limited movement of your arm and hand. ??? Pain when trying to move your wrist, hand, or elbow. How is this diagnosed? This condition may be diagnosed based on: ??? Your symptoms and medical history. ??? A physical exam. ??? An X-ray. How is this treated? Treatment depends on how severe your fracture is, where it is, and how the pieces of the broken bone line up with each other (alignment). ??? Initially, you may need to wear a temporary splint to stabilize the injury for a few days untilyour swelling goes down. After the swelling goes down, you may get a cast, get a different type of splint, or have surgery. ??? If your broken bone is not aligned (displaced) or significantly involves other joints (intra-articular fracture), your health care provider will need to align the bone pieces. To align your broken bone, your health care provider may: ??? Move the bones back into position without surgery (closed reduction). ??? Perform surgery to align the fracture and fix the bone pieces into place with metal screws, plates, or wires (open reduction and internal fixation). ??? Perform surgery to align the fracture and fix the bone pieces into place with pins that are attached to a stabilizing bar outside your skin (external fixation). ??? If there is a cut (laceration) in the skin over the fracture, this may indicate a compound fracture. You may need to take antibiotic medicines and have surgery to clean out the wound and prevent infection of the bones. Treatment may also include: ??? Wearing a splint or cast. This keeps your wrist in place (immobilizes) and allows the fracturedbone to heal properly. ??? Having your cast changed after 2???3 weeks. ??? Physical therapy exercises to improve movement and strength in your arm. ??? Follow-up visits and X-rays to make sure you are healing. Follow these instructions at home: If you have a removable splint: ??? Wear the splint as told by your health care provider. Remove it only as told by your health care provider. ??? Check the skin around the splint every day. Tell your health care provider about any concerns. ??? Loosen the splint if your fingers tingle, become numb, or turn cold and blue. ??? Keep the splint clean and dry. If you have a nonremovable cast or splint: ??? Do not put pressure on any part of the cast or splint until it is fully hardened. This may takeseveral hours. ??? Do not stick anything inside the cast or splint to scratch your skin. Doing that increases yourrisk of infection. ??? Check the skin around the cast or splint every day. Tell your health care provider about any concerns. ??? You may put lotion on dry skin around the edges of the cast or splint. Do not put lotion on theskin underneath the cast or splint. ??? Keep it clean and dry. Bathing ??? Do not take baths, swim, or use a hot tub until your health care provider approves. Ask your health care provider if you may take showers. You may only be allowed to take sponge baths. ??? If your splint or cast is not waterproof: ??? Do not let it get wet. ??? Cover it with a watertight covering when you take a bath or a shower. Managing pain, stiffness, and swelling ??? If directed, put ice on the painful area. To do this: ??? If you have a removable splint, remove it as told by your health care provider. ??? Put ice in a plastic bag. ??? Place a towel between your skin and the bag, or between your cast or splint and the bag. ??? Leave the ice on for 20 minutes, 2???3 times a day. ??? Remove the ice if your skin turns bright red. This is very important. If you cannot feel pain, heat, or cold, you have a greater risk of damage to the area. ??? Move your fingers often to reduce stiffness and swelling. ??? Raise (elevate) your arm above the level of your heart while you are sitting or lying down. Activity ??? Do not lift anything with your injured arm. ??? Do not use the injured arm to support your body weight until your health care provider says that you can. ??? Ask your health care provider what activities are safe for you and what activities you should avoid while you heal. ??? Do exercises as told by your health care provider or physical therapist. Driving Ask your health care provider: ??? If the medicine prescribed to you requires you to avoid driving or using machinery. ??? When it is safe to drive if you have a splint or cast on your arm. General instructions ??? Take duil-sep-rjomkfh and prescription medicines only as told by your health care provider. ??? If you were prescribed an antibiotic medicine, take it as told by your health care provider. Donot stop using the antibiotic even if you start to feel better. ??? Do not use any products that contain nicotine or tobacco. These products include cigarettes, chewing tobacco, and vaping devices, such as e-cigarettes. These can delay bone healing. If you need help quitting, ask your health care provider. ??? Keep all follow-up visits. This is important. Contact a health care provider if you have: ??? Pain that does not get better with medicine. ??? Swelling that gets worse. ??? A bad smell coming from your cast. Get help right away if: ??? You cannot move your fingers. ??? You have severe pain, especially if the pain changes significantly or suddenly. ??? Your fingers or your hand: ??? Become numb, cold, or pale. ??? Turn a bluish color. Summary ??? A radial fracture is a break in the radius bone. ??? The most common cause is falling on an outstretched hand. Treatment depends on how severe your fracture is, where it is, and how the pieces of the broken bone line up with each other. ??? A splint or cast may be needed to help the fracture heal. A more severe fracture may require surgery. This information is not intended to replace advice given to you by your health care provider. Make sure you discuss any questions you have with your health care provider. Document Revised: 09/12/2021 Document Reviewed: 09/12/2021 [employer] Patient Education ?? 2022 [employer] 02/15/2024 16:56:37 Cast or Splint Care, Adult, Wxyo-gj-Jeiu Cast or Splint Care, Adult Casts and splints are supports that are worn to protect broken bones and other injuries. A cast or splint may hold a bone still and in the correct position while it heals. Casts and splints may also help with pain, swelling, and muscle spasms. A cast is a hardened support that is usually made of fiberglass or plaster. It is custom-fit to thebody and offers more protection than a splint. Most casts cannot be taken off and put back on. A splint is a type of soft support that is usually made from cloth and elastic. It can be adjusted or taken off as needed. Often, splints are used on broken bones at first. Later, a cast can replace the splint. What are the risks? In some cases, wearing a cast or splint can make it so that less blood gets to the wrist or hand orto the foot and toes. This can happen if there is a lot of swelling or if the cast or splint is tootight. Limited blood supply can cause a problem called compartment syndrome. This can lead to lasting damage. Symptoms include: ??? Pain that gets worse. ??? Numbness and tingling. ??? Changes in skin color, including paleness or a bluish color. ??? Cold fingers or toes. Other problems from wearing a cast or splint can include: ??? Skin irritation that can cause: ??? Itching. ??? Rash. ??? Skin sores. ??? Skin infection. ??? Limb stiffness or weakness. How to care for a cast or splint that cannot be taken off ??? Do not put pressure on any part of the cast or splint until it is fully hardened. ??? Do not stick anything inside the cast or splint to scratch your skin. ??? Check the skin around the cast or splint every day. Tell your doctor if you see problems. ??? You may put lotion on dry skin around the cast or splint. Do not put lotion on the skin under the cast or splint. ??? Keep the cast or splint clean and dry. How to care for your splint that you can take off ??? Wear the splint as told by your doctor. Take it off only as told by your doctor. ??? Check the skin around it every day. Tell your doctor if you see problems. ??? Loosen it if your fingers or toes: ??? Tingle. ??? Become numb. ??? Turn cold and blue. ??? Keep it clean and dry. Clean your splint as told by your doctor. Use mild soap and water and let it air-dry. Do not use heat on the splint. Follow these instructions at home: Bathing ??? Do not take baths, swim, or use a hot tub until your doctor approves. Ask your doctor if you may take showers. You may only be allowed to take sponge baths. ??? If the cast or splint is not waterproof: ??? Do not let it get wet. ??? Cover it with a watertight covering when you take a bath or a shower. Managing pain, stiffness, and swelling ??? If told, put ice on the affected area. To do this: ??? If you have a cast or splint that can be taken off, take it off as told by your doctor. ??? Put ice in a plastic bag. ??? Place a towel between your skin and the bag or between your cast and the bag. ??? Leave the ice on for 20 minutes, 2???3 times a day. ??? Take off the ice if your skin turns bright red. This is very important. If you cannot feel pain, heat, or cold, you have a greater risk of damage to the area. ??? Move your fingers or toes often. ??? Raise the injured area above the level of your heart while you are sitting or lying down. Safety ??? Do not use your injured leg or foot to support your body weight until your doctor says that youcan. ??? Use crutches or other helpful (assistive) devices as told by your doctor. ??? Ask your doctor when it is safe to drive if you have a cast or splint on part of your body. General instructions ??? Take otlc-fwe-ypusrlh and prescription medicines only as told by your doctor. ??? Return to your normal activities as told by your doctor. Ask your doctor what activities are safe for you. ??? Keep all follow-up visits. This is important. Contact a doctor if: ??? The skin around the cast or splint gets red or raw. ??? The skin under the cast is very itchy or painful. ??? Your cast or splint: ??? Gets damaged. ??? Feels very uncomfortable. ??? Is too tight or too loose. ??? Your cast becomes wet or it starts to have a soft spot or area. ??? There is a bad smell coming from under your cast. ??? You get an object stuck under your cast. Get help right away if: ??? You get any symptoms of compartment syndrome, such as: ??? Very bad pain or pressure under the cast. ??? Numbness, tingling, coldness, or pale or bluish skin. ??? The part of your body above or below the cast is swollen, and it turns a different color (is discolored). ??? You cannot feel or move your fingers or toes. ??? Your pain gets worse. ??? There is fluid leaking through the cast. ??? You have trouble breathing or shortness of breath. ??? You have chest pain. These symptoms may be an emergency. Get help right away. Call your local emergency services (911 int [place] ??? Do not wait to see if the symptoms will go away. ??? Do not drive yourself to the hospital. Summary ??? Casts and splints are worn to protect broken bones and other injuries. ??? Keep your cast or splint clean and dry. ??? Take off your cast or splint only as told by your doctor. ??? Get help right away if you have very bad pain, numbness, tingling, or skin that turns cold or another color. This information is not intended to replace advice given to you by your health care provider. Make sure you discuss any questions you have with your health care provider. Document Revised: 11/20/2021 Document Reviewed: 11/20/2021 [employer] Patient Education ?? 2022 [employer]. Physician Outpatient Note * Chiquita Daugherty PA-C: PERFORM Event Display: Office Clinic Note Physician Authored Date: [id number] MARTA SHEAA :1990 Age:33 years Sex:Female Visit Date:02/15/2024 Chief Complaint Pt fell while roller blading and injured R knee and R wrist. History of Present Illness This is a 33-year-old female who presents for??evaluation of right wrist injury and right knee injury. ??Patient was??rollerskating just prior to arrival when she??lost her footing. ??She notes that her knee twisted and buckled underneath her and she heard and felt a loud pop.?? She has since had difficulty bearing any weight on the knee. ??She is having pain mostly along the??anterior medial aspect of the knee. ??She denies pain,??stiffness, swelling behind the knee. ??The knee does feel unstable. ??She denies prior injury to this knee.?? She also notes that she landed on her outstretched hand. ??She is having pain and swelling over the wrist.??She has history of a fracture in this area when she??was a preteen but no recent injury. ??She has never had surgery to the wrist.?? She is having difficulty using the wrist or moving it at all. ??Denies numbness or tingling. Physical Exam Vitals & Measurements T:??36.3?C ??(Tympanic)?? HR:??90??(Peripheral)?? RR:??16?? BP:??144/94?? SpO2:??98%?? HT:??175??cm?? WT:??127??kg?? BMI:??41.47?? BSA:??2.48?? General: Alert and oriented x 3, no acute distress, well-nourished and hydrated Heart: Regular rate and rhythm, no murmurs, rubs, gallops Lungs: Clear to auscultation without wheezes, rales, rhonchi Right wrist: Examination of the right wrist reveals moderate swelling over the??distal radius. ??There is no gross deformity,??ecchymosis.?? There is tenderness to palpation over the distal radius. ??Mild tenderness to palpation over the anatomical snuffbox. ??No tenderness over the ulnar styloid.?? All range of motion of the wrist is significantly limited secondary to pain.?? Visual Design Lead strength 1+. ??Patient neurovascularly intact. ??Radial pulses 2+ Right knee: Examination of the right knee reveals no gross deformity, edema, ecchymosis. ??There istenderness??inferior and??medial to the patella.?? There is pain with valgus stress.?? No pain withvarus stress.?? Difficult??to??assess??Asiya??due to body habitus, degree of pain??and guarding.?? Flexion and extension are mostly intact. Assessment/Plan 1.??Distal radius fracture, right??S52.501A ??X-ray confirms a right distal radius fracture. ??Placed and was placed in a thumb spica splint today. ??We reviewed splint precautions.?She was provided a sling but I did encourage she remove the sling several times a day to perform gentle range of motion exercises??to prevent stiffening of the elbow.?? I encouraged elevation, ice, bufs-yrs-izisklh analgesics as needed. ??She was given 800 mg of ibuprofen in clinic today. ??Tomorrow, she can start the Toradol. ??Advise she not take the Toradol with any other NSAIDs. ??She can take Tylenol if needed for breakthrough pain.?? I placed an urgent referral to??orthopedics for recheck and ongoing care management. ??She should recheck??for anyacute concerns in the meantime. Ordered: ibuprofen, 800 mg, Oral, Tab, Once, First Dose: 02/15/24 18:37:00 EDT, Stop Date: 02/15/24 18:37:00EDT, Physician Stop, Routine ketorolac 10 mg oral tablet, 10 mg = 1 tab, Oral, QID, PRN as needed for pain, not to exceed 40 mg/day and 5 days duration for all dose forms, # 20 tab, 0 Refill(s), Pharmacy: [facility], 175, cm, 02/15/24 16:33:00 EDT, Height, 127, kg, 02/15/24 16:37:00 EDT, Weight Dosing Office serv/reg kirti/wkend/holiday [id number], 02/15/24 16:28:00 EDT, Distal radius fracture, right Right knee injury ?? 2.??Right knee injury??S89.91XA ??X-ray negative for fracture or bony abnormality.?? Patient does report hearing and feeling an audible??loud pop which I explained to patient could be concerning for internal derangement. ??However, her range of motion is??reassuring on exam and I am unable to appreciate any major effusion at this time. ??The injury did however just happen??prior to arrival.?? She will be following up with orthopedics for her right??wrist fracture, so I advised that she??follow-up??with regards to her knee as well. ??She was placed in a knee brace today. ??She is unable to utilize crutches due to her??wrist fracture. ??I advised limited weightbearing??as tolerated.?? Encouraged elevation, ice, kjfw-lhr-bgmizcu analgesics as needed.?? She will follow-up with orthopedics. Ordered: ibuprofen, 800 mg, Oral, Tab, Once, First Dose: 02/15/24 18:37:00 EDT, Stop Date: 02/15/24 18:37:00EDT, Physician Stop, Routine ketorolac 10 mg oral tablet, 10 mg = 1 tab, Oral, QID, PRN as needed for pain, not to exceed 40 mg/day and 5 days duration for all dose forms, # 20 tab, 0 Refill(s), Pharmacy: [facility], 175, cm, 02/15/24 16:33:00 EDT, Height, 127, kg, 02/15/24 16:37:00 EDT, Weight Dosing Office serv/reg kirti/wkend/holiday [id number], 02/15/24 16:28:00 EDT, Distal radius fracture, right Right knee injury XR Knee 3 Views Right, 02/15/24 17:06:00 EDT, Routine, Reason: right knee injury, Transport Mode: Ambulatory, Right wrist injury Right knee injury, ABN Status: Not Required XR Wrist Complete 3+ Views Right, 02/15/24 17:06:00 EDT, Routine, Reason: right wrist injury, Transport Mode: Ambulatory, Right wrist injury Right knee injury, ABN Status: Not Required ?? Patient Instructions Your x-ray did reveal a fracture of the distal radius. ??You were placed in a splint today. ??It isimportant that you keep the splint dry.?? You will be referred to orthopedics for further evaluation and follow-up.?? With regards to your knee injury, your x-ray is negative for fracture or bony abnormality. ??I am concerned that you heard a pop??as sometimes this can indicate internal derangement of the knee.?? I recommend??following up with orthopedics??to consult for further management. ??You were placed in a knee brace today.?? Limit weightbearing. ??Elevate, ice, and take??pain relievers as needed. ??I sent a prescription for Toradol, which is an anti-inflammatory and pain reliever. ??You can take up to 4 times a day. ??It is important not to take with any ibuprofen, Aleve, or Motrin as this may aggravate the stomach lining. ??If needed, you can take 1000 mg of Tylenol??as needed up to 4 times a day for breakthrough pain.?? Please recheck if you are having any difficulty with the splint, otherwise follow-up with orthopedics Referral Orders Referral Management, Medical Service: Orthopedics, Reason: Please refer to [facility] orthopedics. Please recheck patient for right distal radius fracture. Patient also with injury to right knee where she heard and felt a loud pop., Start: 02/15/24, Urgent Patient Education Radial Fracture Cast or Splint Care, Adult, [id number]-qw-Rqtz Problem List/Past Medical History Ongoing Morbid obesity Historical No qualifying data Medications enalapril ibuprofen, 800 mg, Oral, Once ketorolac 10 mg oral tablet, 10 mg= 1 tab, Oral, QID, PRN Allergies Latex Social History Alcohol Current, Beer, Wine, 1-2 times per week Electronic Cigarette/Vaping Electronic Cigarette Use: Never. Substance Use Never Tobacco Never tobacco user Tobacco Use:. Electronically Signed on 02/15/2024 18:40 EDT Chiquita Daugherty PA-C Outpatient Summary note * Chiquita Daugherty PA-C: PERFORM Event Display: Ambulatory Patient Summary Authored Date: [id number] SINCERE SHEA :1990 Age:33 years Sex:Female Visit Date:02/15/2024 Ambulatory Visit Instructions We would like to thank you for allowing us to assist you with your healthcare needs. The following includes patient education materials and information regarding your injury/illness. Your Next Steps Instructions From Your Care Team Your x-ray did reveal a fracture of the distal radius. ??You were placed in a splint today. ??It isimportant that you keep the splint dry.?? You will be referred to orthopedics for further evaluation and follow-up.?? With regards to your knee injury, your x-ray is negative for fracture or bony abnormality. ??I am concerned that you heard a pop??as sometimes this can indicate internal derangement of the knee.?? I recommend??following up with orthopedics??to consult for further management. ??You were placed in a knee brace today.?? Limit weightbearing. ??Elevate, ice, and take??pain relievers as needed. ??I sent a prescription for Toradol, which is an anti-inflammatory and pain reliever. ??You can take up to 4 times a day. ??It is important not to take with any ibuprofen, Aleve, or Motrin as this may aggravate the stomach lining. ??If needed, you can take 1000 mg of Tylenol??as needed up to 4 times a day for breakthrough pain.?? Please recheck if you are having any difficulty with the splint, otherwise follow-up with orthopedics Medications What How Much When Why Instructions New ketorolac (ketorolac 10 mg oral tablet) 1 tab Oral (given by mouth) 4 times a day as needed for as needed for pain Distal radius fracture, right Right knee injury not to exceed 40 mg/ day and 5 days duration for all dose forms ?? Pickup at [facility] Unchanged enalapril Pharmacy Information [facility]: [id number] [place], [place] [id number] [phone] Your Summary Your Diagnosis Distal radius fracture, right Right knee injury Problems Ongoing - Any problem that you are currently receiving treatment for. Morbid obesity Your Care Team Attending Physician - Chiquita Daugherty PA-C Discharge Vitals Temperature??(Tympanic) 97.3 ??F (36.3 ??C) Heart Rate??(Peripheral) 90 Respiratory Rate?? 16 Blood Pressure?? 144/94?? SpO2?? 98% Height?? 68.90 in (175 cm) Weight?? 280.04 lb (127 kg) BMI?? 41.47 Allergies Latex Education Materials Radial Fracture A radial fracture is a break in the radius bone. The radius is a bone in the forearm, on the same side as the thumb. The forearm is the part of the arm that is between the elbow and the wrist. A radial fracture near the wrist (distal radialfracture) is the most common type of broken arm. A fracturecan also occur near the elbow (radial head fracture). What are the causes? The most common cause of a radial fracture is falling with the arm outstretched. Other causes include: ? An accident, such as a car or bike accident. ? A hard, direct hit to the forearm. What increases the risk? You may be at greater risk for a radial fracture if you: ? Are female. ? Are an older adult. ? Play contact sports. ? Have a condition that causes your bones to become thin and brittle (osteoporosis). What are the signs or symptoms? A radial fracture causes pain immediately after the injury. Other signs and symptoms may include: ? An abnormal bend or bump in the arm (deformity). ? Swelling. ? Tenderness. ? Bruising. ? Numbness or tingling in your arm and hand. ? Limited movement of your arm and hand. ? Pain when trying to move your wrist, hand, or elbow. How is this diagnosed? This condition may be diagnosed based on: ? Your symptoms and medical history. ? A physical exam. ? An X-ray. How is this treated? Treatment depends on how severe your fracture is, where it is, and how the pieces of the broken bone line up with each other (alignment). ? Initially, you may need to wear a temporary splint to stabilize the injury for a few days until your swelling goes down. After the swelling goes down, you may get a cast, get a different type of splint, or have surgery. ? If your broken bone is not aligned (displaced) or significantly involves other joints (intra-articular fracture), your health care provider will need to align the bone pieces. To align your broken bone, your health care provider may: ? Move the bones back into position without surgery (closed reduction). ? Perform surgery to align the fracture and fix the bone pieces into place with metal screws, plates,or wires (open reduction and internal fixation). ? Perform surgery to align the fracture and fix the bone pieces into place with pins that are attached to a stabilizing bar outside your skin (external fixation). ? If there is a cut (laceration) in the skin over the fracture, this may indicate a compound fracture. You may need to take antibiotic medicines and have surgery to clean out the wound and prevent infection of the bones. Treatment may also include: ? Wearing a splint or cast. This keeps your wrist in place (immobilizes) and allows the fractured bone to heal properly. ? Having your cast changed after 2???3 weeks. ? Physical therapy exercises to improve movement and strength in your arm. ? Follow-up visits and X-rays to make sure you are healing. Follow these instructions at home: If you have a removable splint: ? Wear the splint as told by your health care provider. Remove it only as told by your health care provider. ? Check the skin around the splint every day. Tell your health care provider about any concerns. ? Loosen the splint if your fingers tingle, become numb, or turn cold and blue. ? Keep the splint clean and dry. If you have a nonremovable cast or splint: ? Do not put pressure on any part of the cast or splint until it is fully hardened. This may take several hours. ? Do not stick anything inside the cast or splint to scratch your skin. Doing that increases your risk of infection. ? Check the skin around the cast or splint every day. Tell your health care provider about any concerns. ? You may put lotion on dry skin around the edges of the cast or splint. Do not put lotion on the skin underneath the cast or splint. ? Keep it clean and dry. Bathing ? Do not take baths, swim, or use a hot tub until your health care provider approves. Ask your healthcare provider if you may take showers. You may only be allowed to take sponge baths. ? If your splint or cast is not waterproof: ? Do not let it get wet. ? Cover it with a watertight covering when you take a bath or a shower. Managing pain, stiffness, and swelling ? If directed, put ice on the painful area. To do this: ? If you have a removable splint, remove it as told by your health care provider. ? Put ice in a plastic bag. ? Place a towel between your skin and the bag, or between your cast or splint and the bag. ? Leave the ice on for 20 minutes, 2???3 times a day. ? Remove the ice if your skin turns bright red. This is very important. If you cannot feel pain, heat, or cold, you have a greater risk of damage to the area. ? Move your fingers often to reduce stiffness and swelling. ? Raise (elevate) your arm above the level of your heart while you are sitting or lying down. Activity ? Do not lift anything with your injured arm. ? Do not use the injured arm to support your body weight until your health care provider says that you can. ? Ask your health care provider what activities are safe for you and what activities you should avoidwhile you heal. ? Do exercises as told by your health care provider or physical therapist. Driving Ask your health care provider: ? If the medicine prescribed to you requires you to avoid driving or using machinery. ? When it is safe to drive if you have a splint or cast on your arm. General instructions ? Take mzgm-kps-wynlbdi and prescription medicines only as told by your health care provider. ? If you were prescribed an antibiotic medicine, take it as told by your health care provider. Do notstop using the antibiotic even if you start to feel better. ? Do not use any products that contain nicotine or tobacco. These products include cigarettes, chewing tobacco, and vaping devices, such as e-cigarettes. These can delay bone healing. If you need help quitting, ask your health care provider. ? Keep all follow-up visits. This is important. Contact a health care provider if you have: ? Pain that does not get better with medicine. ? Swelling that gets worse. ? A bad smell coming from your cast. Get help right away if: ? You cannot move your fingers. ? You have severe pain, especially if the pain changes significantly or suddenly. ? Your fingers or your hand: ? Become numb, cold, or pale. ? Turn a bluish color. Summary ? A radial fracture is a break in the radius bone. ? The most common cause is falling on an outstretched hand. Treatment depends on how severe your fracture is, where it is, and how the pieces of the broken bone line up with each other. ? A splint or cast may be needed to help the fracture heal. A more severe fracture may require surgery. This information is not intended to replace advice given to you by your health care provider. Make sure you discuss any questions you have with your health care provider. Document Revised: 09/12/2021 Document Reviewed: 09/12/2021 [employer] Patient Education ?? 2022 [employer]. Cast or Splint Care, Adult Casts and splints are supports that are worn to protect broken bones and other injuries. A cast or splint may hold a bone still and in the correct position while it heals. Casts and splints may also help with pain, swelling, and muscle spasms. A cast is a hardened support that is usually made of fiberglass or plaster. It is custom-fit to thebody and offers more protection than a splint. Most casts cannot be taken off and put back on. A splint is a type of soft support that is usually made from cloth and elastic. It can be adjusted or taken off as needed. Often, splints are used on broken bones at first. Later, a cast can replace the splint. What are the risks? In some cases, wearing a cast or splint can make it so that less blood gets to the wrist or hand orto the foot and toes. This can happen if there is a lot of swelling or if the cast or splint is tootight. Limited blood supply can cause a problem called compartment syndrome. This can lead to lasting damage. Symptoms include: ? Pain that gets worse. ? Numbness and tingling. ? Changes in skin color, including paleness or a bluish color. ? Cold fingers or toes. Other problems from wearing a cast or splint can include: ? Skin irritation that can cause: ? Itching. ? Rash. ? Skin sores. ? Skin infection. ? Limb stiffness or weakness. How to care for a cast or splint that cannot be taken off ? Do not put pressure on any part of the cast or splint until it is fully hardened. ? Do not stick anything inside the cast or splint to scratch your skin. ? Check the skin around the cast or splint every day. Tell your doctor if you see problems. ? You may put lotion on dry skin around the cast or splint. Do not put lotion on the skin under the cast or splint. ? Keep the cast or splint clean and dry. How to care for your splint that you can take off ? Wear the splint as told by your doctor. Take it off only as told by your doctor. ? Check the skin around it every day. Tell your doctor if you see problems. ? Loosen it if your fingers or toes: ? Tingle. ? Become numb. ? Turn cold and blue. ? Keep it clean and dry. Clean your splint as told by your doctor. Use mild soap and water and let itair-dry. Do not use heat on the splint. Follow these instructions at home: Bathing ? Do not take baths, swim, or use a hot tub until your doctor approves. Ask your doctor if you may take showers. You may only be allowed to take sponge baths. ? If the cast or splint is not waterproof: ? Do not let it get wet. ? Cover it with a watertight covering when you take a bath or a shower. Managing pain, stiffness, and swelling ? If told, put ice on the affected area. To do this: ? If you have a cast or splint that can be taken off, take it off as told by your doctor. ? Put ice in a plastic bag. ? Place a towel between your skin and the bag or between your cast and the bag. ? Leave the ice on for 20 minutes, 2???3 times a day. ? Take off the ice if your skin turns bright red. This is very important. If you cannot feel pain, heat, or cold, you have a greater risk of damage to the area. ? Move your fingers or toes often. ? Raise the injured area above the level of your heart while you are sitting or lying down. Safety ? Do not use your injured leg or foot to support your body weight until your doctor says that you can. ? Use crutches or other helpful (assistive) devices as told by your doctor. ? Ask your doctor when it is safe to drive if you have a cast or splint on part of your body. General instructions ? Take ovmn-exb-nhrajvb and prescription medicines only as told by your doctor. ? Return to your normal activities as told by your doctor. Ask your doctor what activities are safe for you. ? Keep all follow-up visits. This is important. Contact a doctor if: ? The skin around the cast or splint gets red or raw. ? The skin under the cast is very itchy or painful. ? Your cast or splint: ? Gets damaged. ? Feels very uncomfortable. ? Is too tight or too loose. ? Your cast becomes wet or it starts to have a soft spot or area. ? There is a bad smell coming from under your cast. ? You get an object stuck under your cast. Get help right away if: ? You get any symptoms of compartment syndrome, such as: ? Very bad pain or pressure under the cast. ? Numbness, tingling, coldness, or pale or bluish skin. ? The part of your body above or below the cast is swollen, and it turns a different color (is discolored). ? You cannot feel or move your fingers or toes. ? Your pain gets worse. ? There is fluid leaking through the cast. ? You have trouble breathing or shortness of breath. ? You have chest pain. These symptoms may be an emergency. Get help right away. Call your local emergency services ([address] [facility] [place] ? Do not wait to see if the symptoms will go away. ? Do not drive yourself to the hospital. Summary ? Casts and splints are worn to protect broken bones and other injuries. ? Keep your cast or splint clean and dry. ? Take off your cast or splint only as told by your doctor. ? Get help right away if you have very bad pain, numbness, tingling, or skin that turns cold or another color. This information is not intended to replace advice given to you by your health care provider. Make sure you discuss any questions you have with your health care provider. Document Revised: 11/20/2021 Document Reviewed: 11/20/2021 Elsevier Patient Education ?? 2022 [employer] Electronically Signed on: 02/15/2024 17:56 EDTSigned by:FREIDA Patient Care team information Care Team Related Persons Name: PATRIA SHEA Insurance Providers Guarantor name: SAVANNA Health Plan Information #: 1 Payer: [facility] [employer] Member Number: [id number] Policy Number: NA Health Plan Information #: 2 Payer: [facility] [employer] Member Number: [id number] Policy Number: JESSIE
--- OUTSIDE RECORDS SUMMARY | 2024-04-22 12:57 | XMS_ITS | Continuity of Care Document ---
Author Organization [facility] Address [address] [place] [id number] Support Name Relationship Address Phone PATRIA SHEA Personal Relationship Unknown Unav ailable Encounter [facility] [id number] Date(s): 02/15/24 - 02/15/[address] [address]- [place] Discharge Disposition: Home or Self Care Attending Physician: Chiquita Daugherty PA-C Admitting Physician: Chiquita Daugherty PA-C Allergies, Adverse Reactions, [...] forms, # 20 tab, 0 Refill(s), Pharmacy: [facility], 175, cm, 02/15/24 16:33:00 EDT, Height, 127, kg, 02/15/24 16:37:00 EDT, Weight Dosing Start Date: 02/15/24 Status: Ordered Results Radiology Reports * Exam Date Time Procedure Performing Provider Status 02/15/24 5:27 PM XR Knee 3 Views Right Tomy, Joyce; Nolan (Verified) Notes: (XR Knee 3 Views Right) Reason For Exam: right knee injury XR Knee 3 Views Right PROCEDURE INFORMATION: Exam: XR Right Knee Exam date and time: 02/15/2024 5:36 PM Age: 33 years old Clinical indication: Unspecified injury of right wrist, hand and finger(s), initial encounter; Unspecified injury of right wrist, hand and finger(s), initial encounter; Unspecified injury of right lower leg, initial encounter; Unspecified injury of right lower leg, initial encounter; Additional info: Right knee injury TECHNIQUE: Imaging protocol: Radiologic exam of the right knee. Views: 3 views. COMPARISON: No relevant prior studies available. FINDINGS: Bones/joints: No acute fracture or dislocation Soft tissues: Normal. IMPRESSION: No acute findings. THIS DOCUMENT HAS BEEN ELECTRONICALLY SIGNED BY JUMA GAMEZ MD on 02/15/2024 06:52 PM Final Signed by: Juma Gamez MD Signed (Electronic Signature): 02/15/2024 6:52 pm * Exam Date Time Procedure Performing Provider Status 02/15/24 5:27 PM XR Wrist Complete 3+ Views Right Joyce Romero; Nolan (Verified) Notes: (XR Wrist Complete 3+ Views Right) Reason For Exam: right wrist injury XR Wrist Complete 3+ Views Right PROCEDURE INFORMATION: Exam: XR Right Wrist Exam date and time: 02/15/2024 5:34 PM Age: 33 years old Clinical indication: Unspecified injury of right wrist, hand and finger(s), initial encounter; Unspecified injury of right wrist, hand and finger(s), initial encounter; Unspecified injury of right lower leg, initial encounter; Unspecified injury of right lower leg, initial encounter; Additional info: Right wrist injury TECHNIQUE: Imaging protocol: Radiologic exam of the right wrist. Views: 3 or more views. COMPARISON: No relevant prior studies available. FINDINGS: Bones/joints: Comminuted impacted distal radius fracture extending to the articular surface. There is no dislocation or significant angulation Soft tissues: Swelling at the wrist IMPRESSION: Distal radius fracture as noted THIS DOCUMENT HAS BEEN ELECTRONICALLY SIGNED BY JUMA GAMEZ MD on 02/15/2024 06:53 PM Final Signed by: Juma Gamez MD Signed (Electronic Signature): 02/15/2024 6:53 pm Social History Social History Type Response Tobacco Never tobacco user T obacco Use:. Sex Sex Representation Female (finding) Patient Care team information Care Team Related Persons Name: PATRIA SHEA Insurance Providers Guarantor name: Health Plan Information #: 1 Payer: [facility] [employer] Member Number: [id number] Policy Number: Health Plan Information #: 2 Payer: [facility] [employer] Member Number: [id number] Policy Number: NA
[2024-04-22 15:52] LABS: TSH 3.12 uIU/mL (0.36-3.74)
== END 2024-04-22 12:56 | disposition home or self-care (01) ==
LOC: NCHCN 12:55
PROVIDERS: PCP Nurse Practitioner Family; Visit Provider Nurse Practitioner Family
DX: O90.5 Postpartum thyroiditis (principal)
CPT/HCPCS: 84443

== ENCOUNTER 2024-08-25 11:29 | Outpatient (REF) | payer OTHER, SELFPAY | END 2024-08-25 11:30 | disposition home or self-care (01) | LOC: NCHCN 11:29 | PROVIDERS: PCP Nurse Practitioner Family; Visit Provider Family Medicine | DX: N39.0 Urinary tract infection, site not specified (principal) | CPT/HCPCS: 87077; 87086; 87186 ==

== ENCOUNTER 2024-08-30 15:25 | Outpatient (REF) | payer OTHER, SELFPAY ==
[2024-08-30 19:24] LABS: Abs Immature Grans 0.04 10^3/uL (0.0-0.06); Absolute Basophil Count 0.04 10^3/uL (0.0-0.2); Absolute Eosinophil Count 0.12 10^3/uL (0.0-0.7); Absolute Lymphocyte Count 2.48 10^3/uL (1.2-3.4); Absolute Monocyte Count 0.63 10^3/uL (0.1-0.8); Absolute Neutrophil Count 6.41 10^3/uL (1.2-6.7); Basophils % 0.4 %; Eosinophils % 1.2 %; HCT 37.7 % (36.0-46.0); HGB 12.5 g/dL (11.2-15.7); Immature Grans % 0.4 %; Lymphocytes % 25.5 %; MCH 30.4 pg (27.0-33.0); MCHC 33.2 % (32.0-36.0); MCV 92 fL (80-95); MPV 11.4 fL (8.0-11.0); Monocytes % 6.5 %; Platelet Count 276 10^3/uL (130-400); RBC 4.11 10^6/uL (3.93-5.22); RDW 12.6 % (11.7-14.6); RDW-SD 42.1 fL; WBC 9.72 10^3/uL (4.4-10.8)
[2024-08-30 19:46] LABS: Hemoglobin A1C 5.6 % (<5.7)
[2024-08-30 20:03] LABS: TSH 3.49 uIU/mL (0.36-3.74); Vitamin D 25 Total 23 ng/mL (30-100)
== END 2024-08-30 15:26 | disposition home or self-care (01) ==
LOC: NCHCN 15:25
PROVIDERS: PCP Nurse Practitioner Family; Visit Provider Nurse Practitioner Family
DX: O90.5 Postpartum thyroiditis (principal); E55.9 Vitamin D deficiency, unspecified; R73.03 Prediabetes; N92.0 Excessive and frequent menstruation with regular cycle
CPT/HCPCS: 82306; 83036; 84443; 85025